=== PATIENT | female | born 1940 ===

== ENCOUNTER 2025-04-08 15:20 | Oncology outpatient (recurring) (ONCR) | payer MEDICARE, SELFPAY ==
--- NOTE | 2025-04-08 17:10 | PC.NURSE ---
Patient had office visit with DR with new orders for labs and hard to access veins with lab hair blender come to assist with no furhter issues.mm
[2025-04-08 17:15] VITALS: RESP 17; TEMP 36.6
[2025-04-08 17:38] LABS: Hematocrit 32.5 % (36-47); Hemoglobin 10.60 g/dL (11.27-16.99); Mean Corpuscular HGB Conc 32.6 g/dL (30-55); Mean Corpuscular Hemoglobin 33.9 pg (27-33); Mean Corpuscular Volume 103.8 fl (85-98); Nucleated Red Blood Cells % 0 %; Platelet Count 620 10^3/cmm (157-399); Red Blood Count 3.13 10^6/uL (3.85-5.65); White Blood Count 8.61 10^3/uL (3.29-11.43)
[2025-04-08 17:54] LABS: Alanine Aminotransferase 27 U/L (0-33); Albumin Level 4.2 g/dL (3.5-5.2); Alkaline Phosphatase 174 U/L (35-105); Anion Gap 16.4 (5-19); Aspartate Amino Transferase 27 U/L (0-32); Blood Urea Nitrogen 34 mg/dL (8-23); Calcium 9.8 mg/dL (8.5-10.5); Carbon Dioxide 25 mmol/L (22-29); Chloride 102 mmol/L (98-107); Ferritin 72 ng/mL (15-150); Globulin 3.4 g/dL (1.3-4.6); Glucose 119 mg/dL (65-115); Iron 90 ug/dL (37-145); Osmolality Calculated 297 mOsm/kg (285-295); Potassium 4.4 mmol/L (3.5-5.1); Sodium 139 mmol/L (136-145); Total Protein 7.6 g/dL (6.6-8.7)
[2025-04-08 18:08] LABS: Vitamin B12 950 pg/mL (232-1245)
[2025-04-08 18:56] LABS: Slide Review Slide Review Perform
== END 2025-04-21 23:59 | disposition home or self-care (01) ==
PROVIDERS: Family Provider Family Medicine; Visit Provider Internal Medicine
DX: D58.9 Hereditary hemolytic anemia, unspecified (principal); R03.0 Elevated blood-pressure reading, without diagnosis of hypertension; Z87.891 Personal history of nicotine dependence; Z79.899 Other long term (current) drug therapy; Z90.81 Acquired absence of spleen; E11.22 Type 2 diabetes mellitus with diabetic chronic kidney disease; N18.9 Chronic kidney disease, unspecified; I05.0 Rheumatic mitral stenosis; Z98.51 Tubal ligation status
CPT/HCPCS: 36415; 80053; 82607; 82728; 82746; 83010; 83540; 83615; 85025; 85045; 85651; 86157; 86880; 99204

== ENCOUNTER 2025-04-11 14:41 | Emergency (ER) | payer MEDICARE, SELFPAY ==
[2025-04-11 14:44] VITALS: BP 169/75; PULSE 74; RESP 16; TEMP 36.7; O2SAT 99; BMI 20.8
--- OUTSIDE RECORDS SUMMARY | 2025-04-11 14:46 | XMS_ITS | Encounter Summary ---
Author Organization [facility] [employer] Address [address] [address] Phone Care Team Providers Care Pressure Control Supervisor Name Role Phone Georges Pace LINK TRAINER Primary Care Provider [phone] Reason for Referral * Consultation (Routine) - Authorized Specialty Diagnoses / Procedures Referred By Contac t Referred To Contact Nephrology Diagnoses Chronic kidney disease, Stage IV (severe) (HCC) Sasha Johnson MD [address] [place] [address] Phone: tel: fax: Fatou Stanford MD [address] [address] Phone: tel: fax: Referral ID Status Reason Start Date Expiration Date Visits Requested Visits Authorized [id number] Authorized Consult and Treat 02/09/2025 02/09/2026 1 1 Encounter Details Date Type Department Care Team (Latest Contact Info) Description 02/09/2025 Transcribe Orders [facility] [address] [address] Sasha Johnson MD [address] [place] [address] Chronic kidney disease, Stage IV (severe) (HCC) (Primary Dx) Social History Tobacco Use Types Packs/Day Years Used Date Smoking Tobacco: Never Assessed Comments Unknown Sex and Gender Information Value Date Recorded Sex Assigned at Not on file Legal Sex Female 12:36 PM EDT Gender Identity Not on file Sexual Orientation Not on file documented as of this encounter Plan of Treatment Upcoming Encounters Date Type Department Care Team (Late st Contact Info) Description 05/07/2025 1:20 PM ACCOUNT MANAGER FOREST SERVICE Office Visit [facility], [facility] [address] [place] [address] Fatou Stanford MD [address] [place] [address] Scheduled Referrals Name Type Priority Associated Diagnoses Order Schedule Ambulatory referral to Nephrology Outpatient Referral Routine Chronic kidney disease, Stage IV (severe) (HCC) Expected: 02/09/2025, Expires: 02/09/2026 documented as of this encounter Visit Diagnoses Diagnosis Chronic kidney disease, Stage IV (severe) (HCC)- Primary Chronic kidney disease, Stage IV (severe) documented in this encounter Care Teams Pressure Control Supervisor Relationship Specialty Start Date End Date Georges Pace FNP [address] [place] [address] PCP - General Nurse Practitioner 02/09/25 documented as of this encounter
--- OUTSIDE RECORDS SUMMARY | 2025-04-11 14:46 | XMS_ITS | Clinical Summary ---
Author Organization [facility], [facility] Address [address] [place] [address] Phone Care Team Providers Care Steam Fitter Supervisor Name Role Phone Katelynn Georges Damon WATER SOFTENER INSTALLER Primary Care Provider [phone] Encounters Date Type Department Care Team Description 02/09/2025 Telephone [facility], [facility] [address] [facility] [address] [address] Fatou Stanford MD 02/09/2025 Transcribe Orders [facility], [facility] [address] [address] Sasha Johnson MD Chronic kidney disease, Stage IV (severe) (HCC) (Primary Dx) from Last 3 Months Social History Tobacco Use Types Packs/Day Years Used Date Smoking Tobacco: Never Assessed Comments Unknown Sex and Gender Information Value Date Recorded Sex Assigned at Not on file Legal Sex Female 12:36 PM EDT Gender Identity Not on file Sexual Orientation Not on file Plan of Treatment Upcoming Encounters Date Type Department Care Team (Late st Contact Info) Description 05/07/2025 1:20 PM SENIOR MECHANICAL ENGINEER Office Visit [facility], [facility] [address] [facility] [address] [place] [address] Fatou Stanford MD [address] [facility] [address] [place] [address] Health Maintenance Due Date Last Done Comments Pneumococcal Vaccine: 50+ Ye ars (1 of 2 - PCV) 1959 Influenza Vaccine (#1) 2024 Hepatitis B Vaccine Aged Out No longe r eligible based on patient's age to complete this topic Insurance U[employer] Medicare Care Teams Steam Fitter Supervisor Relationship Specialty Start Date End Date Georges Pace FNP [facility] [address] [place], [place] [id number] PCP - General Nurse Practitioner 02/09/25
--- NOTE | 2025-04-11 16:08 | ED_ITS ---
HPI - Skin/Abscess/Foreign Bdy 2 General: Chief complaint: Skin/Abscess/Foreign Body Stated complaint: Itching everywhere Time Seen by Provider: 04/11/25 15:08 History of Present Illness: Patient is 84-year-old female with history of hemolytic anemia, presents to the ED with a rash to her stomach. She also has itching to lower extremities. Axilla is spared. Her arms have some itching. Patient is unsure what the issue is. She is putting up insulation in the home that her and her son are building. This occurred over the last 2 days. Benadryl did not seem to help. She denies any allergies other than polyester fibers, and Januvia. No fevers. She does have associated redness to her abdomen Associated symptoms: Reports nausea; Deny fever(s) or vomiting Related Data Home Medications ?Medication ?Instructions ?Recorded ?Confirmed gabapentin 100 mg capsule 100 mg PO BID 04/08/2504/08 levothyroxine 13 mcg capsule 13 mcg PO DAILY 04/08/25 04/08/25 metformin 500 mg tablet 500 mg PO DAILY 04/08/25 pyridoxine (vitamin B6) 10 mg 10 mg PO DAILY 04/08/25 04/08/25 tablet Previous Rx's ?Medication ?Instructions ?Recorded cephalexin 500 mg capsule 500 mg PO BID 10 days #20 ca ps 04/11/25 clobetasol 0.05 % topical cream 1 applic topical BID 1 week #30 04/11/25 grams famotidine 40 mg tablet (Pepcid) 40 mg PO BID #20 tabs 04/11/25 methylprednisolone 4 mg tablets in See Rx Instructions PO .COMPLEX 04/11/25 a dose pack (Medrol (Tre)) #21 ea Allergies Allergy/AdvReac Type Severity Reaction Status Date / Time sitagliptin (From Januvia) Allergy Severe ALGY-Swell Verified 04/08/25 16:01 Lip/Tongue/Throat polyester fibers Allergy Intermediate ADR-Itching Verified 04/08/25 16:01 Review of Systems 2 General: Reports: 10 or more systems reviewed and unremarkable except in HPI and below Const: Denies: fever(s) Eyes: Denies: change in vision ENMT: Denies: throat pain or oral sores Card: Denies: chest pain Resp: Denies: dyspnea GI: Reports: nausea; Denies: abdominal pain or vomiting : Denies: hematuria Musc: Denies: joint pain or joint swelling Skin/Breast: Denies: rash Neuro: Reports: other (cranial nerves normal, no focal signs); Denies: confusion Psych: Reports: other (Insight normal) Endo: Denies: polyuria Camron/Lymph: Denies: easy bruising All/Imm: Denies: urticaria PFSH ED 2 PFSH: Social History Smoking and tobacco/nicotine status: former use of tobacco/nicotine Physical Exam 2 Const: COMMON NORMALS: no acute distress, patient oriented x3 and alert G ENERAL APPEARANCE: other (moderately built and nourished) HENMT: COMMON NORMALS: normocephalic HEAD & SCALP: normocephalic MOUTH: other (oral mucosa normal) Eye: COMMON NORMALS: EOMs intact bilaterally and no scleral icterus Neck/C-Spine: COMMON NORMALS: no lymphadenopathy and Thyroid normal T HYROID: Thyroid normal Lymph: LYMPHATIC: no lymphadenopathy noted Resp: COMMON NORMALS: clear to auscultation bilaterally AUSCULTATION: clear to auscultation bilaterally Cardio: COMMON NORMALS: regular rate, regular rhythm, No murmurs present (Cardio) and No rub (Cardio) RATE: regular rate RHYTHM: regular rhythm GI: COMMON NORMALS: Soft to palpation, non-tender and No hepatosplenomegaly present PALPATION: Yes Soft to palpation and Yes No hepatosplenomegaly present OTHER: Nondistended GI image (female): 1. Macular papular red excoriated area : COMMON NORMALS: Yes no CVA tenderness BLADDER/KIDNEY EXAM: Yes no CVA tenderness Back/Pelvis: COMMON NORMALS: no CVA tenderness Extremity: COMMON NORMALS: normal to inspection and no pedal edema Neuro: COMMON NORMALS: patient oriented x3 and no focal motor deficits S ENSORIUM/ORIENTATION: Yes alert SPEECH: speech normal Psych: COMMON NORMALS: mental status grossly normal Skin: NARRATIVE SKIN EXAM: See picture Course 2 Vital Signs: Vital signs: Vital Signs Temperature 98.0 F 04/11/25 14:44 Pulse Rate 74 04/11/25 14:44 Respiratory Rate 16 04/11/25 14:44 Blood Pressure 169/75 04/11/25 14:44 Pulse Oximetry 99 04/11/25 14:44 Oxygen Delivery Me thod Room Air 04/11/25 14:44 MDM - Skin/Abscess/Foreign Bdy Medicial Decision Making Patient is a 4-year-old female that had a known exposure to allergen. The differential list includes allergic reaction, scabies, hemolytic anemia. Discussed this with patient. She will be treated for allergic reaction at first. She is to follow-up with her primary regarding concern for hemolytic anemia. Medical Records I reviewed the patient's medical records. No radiology studies performed this visit Discharge Plan Discharge Patient Disposition: Home Clinical Impression: Allergic reaction Qualifiers: Encounter type: initial encounter Qualified Code(s): T78.40XA - Allergy, unspecified, initial encounter Condition: Stable Prescriptions: New clobetasol 0.05 % cream 1 applic topical BID 7 Days Qty: 30 0RF cephalexin 500 mg capsule 500 mg PO BID 10 Days Qty: 20 0RF methylprednisolone [Medrol (Tre)] 4 mg tablets,dose pack See Rx Instructions .ROUTE .COMPLEX Qty: 21 0RF Rx Instructions: for 6 days famotidine [Pepcid] 40 mg tablet 40 mg PO BID Qty: 20 0RF No Action metformin 500 mg tablet 500 mg PO DAILY levothyroxine 13 mcg capsule 13 mcg PO DAILY pyridoxine (vitamin B6) 10 mg tablet 10 mg PO DAILY gabapentin 100 mg capsule 100 mg PO BID Discharge Orders: Discharge ED (Routine); Ordered 04/11/25 Ordered By: Shantel Cross Referrals: Scot Ruiz MD [Family Provider, Family Practice] Patient Instructions: Allergic Reaction, Patient Portal & Nito Instructions Activity Restrictions/Additional Instructions: - At the pharmacy: Pepcid: Pepcid is a powerful antihistamine that hits the second receptor. You take this medication twice a day. Medrol Dosepak: Powerful steroid/anti-inflammatory. Clobetasol: This is a cream that you placed on your abdomen. You avoid your face, and groin with this type of cream. Cephalexin: This is an antibiotic. This is for secondary infection. - Call your doctor tomorrow to discuss a follow-up. You will need to have this followed with your history of hemolytic anemia, and make sure your hemolytic anemia condition is not worse. - We discussed you taking a long-acting antihistamine [id number] such as Claritin, Zyrtec, or xyzal in the generic form twice daily. This is an approved off label use for allergic reaction - Benadryl: Obtain Benadryl [id number] and take 25-50 mg every 6 hours as needed for itching - Return to ED with worsening issues of rash, or if you develop any breathing issues Thank you for choosing [facility] for your healthcare needs today. You have been screened and evaluated and felt safe for discharge. Health conditions do change or evolve sometimes and as such it is important that you follow up with your Primary Doctor to be re checked, 3-5 days is a general good time frame for follow up. You are always welcome to return to the ED for re assessment if your symptoms are worsening or you have new concerns Print Language: Equatorial Guinean Coding Level of Care Code ED Apartment Rental Clerk for Becky Arellano
[2025-04-11] MEDS: diphenhydrAMINE 50 mg/mL SDV 1mL IM (16:17)
== END 2025-04-11 16:42 | disposition home or self-care (01) ==
PROVIDERS: Emergency Provider Physician Assistant; Family Provider Family Medicine
DX: T78.40XA Allergy, unspecified, initial encounter (principal); Z79.84 Long term (current) use of oral hypoglycemic drugs; Z87.891 Personal history of nicotine dependence; X58.XXXA Exposure to other specified factors, initial encounter
CPT/HCPCS: 96372; 99284; J1200; J9999